=== PATIENT | female | born 1990 | race Caucasian/White ===

== ENCOUNTER 2017-07-28 16:24 | Emergency (ER) | payer OTHER ==
[~2017-07-28] VITALS: Ht 154.9 cm; Wt 83.5 kg
[~2017-07-28 16:24] MED LIST: AMOX1TAB12 PO; KETO10TA2 PO
== END 2017-07-28 18:59 | disposition home or self-care (01) ==
LOC: ER 16:24
DX: M62.830 Muscle spasm of back (principal); M54.5 Low back pain